=== PATIENT | female | born 2000 | race African-American/Black ===

== ENCOUNTER 2024-12-01 00:39 | Emergency (ER) | payer SELFPAY ==
--- NOTE | 2024-12-01 | ECG_ITS ---
Test Reason : SYNCOPE Blood Pressure : */* mmHG Vent. Rate : 76 BPM Atrial Rate : 76 BPM P-R Int : 184 ms QRS Dur : 84 ms QT Int : 410 ms P-R-T Axes : 35 -3 -7 degrees QTcB Int : 461 ms Normal sinus rhythm Normal ECG No previous ECGs available Referred By: Generic ED Physician Electronically Signed By: THOMAS ROJAS
[2024-12-01 00:43] VITALS: BP 111/63; PULSE 86; RESP 18; TEMP 37.1; O2SAT 97; BMI 35.4
[2024-12-01 01:24] LABS: MANUAL DIFF FLAG NO
[2024-12-01 01:26] LABS: Basophils Percent Auto 0.2 % (0-2); Eosinophils Absolute Auto 0.1 X10*3/uL (0.0-0.4); Eosinophils Percent Auto 2.6 % (0-4); Hematocrit 35.7 % (37.0-47.0); Hemoglobin 12.4 g/dl (12.0-16.0); Imm Gran Abs Auto 0.01 X10*3/uL (0.00-0.03); Imm Gran Pct Auto 0.2 % (0.0-0.4); Lymphocytes Absolute Auto 2.1 X10*3/uL (1.2-4.9); Lymphocytes Percent Auto 46.2 % (20-40); Mean Corpuscular HGB Conc 34.7 g/dl (31.0-35.0); Mean Corpuscular Hemoglobin 28.8 pg (27.0-33.0); Mean Platelet Volume 8.3 fL (9.4-12.3); Monocytes Absolute Auto 0.4 X10*3/uL (0.1-1.2); Monocytes Percent Auto 8.8 % (2-11); Neutrophils Absolute Auto 1.9 x10*3/uL (2.0-8.3); Platelet Count 248 X10*3/uL (160-400); Red Cell Distribution Width 12.5 % (11.0-16.0); White Blood Count 4.6 X10*3/uL (4.8-10.8)
--- OUTSIDE RECORDS SUMMARY | 2024-12-01 01:35 | XMS_ITS | Clinical Summary ---
Author Organization [address] [facility] Address [address] [place] [address] Phone Care Team Providers Care [employer]uer Name Role Phone Maral Hogan MD Primary Care Provider [phone] Allergies Active Allergy Reactions Criticality Noted Date Comments Other 10/30/2007 Seasonal allergies Active Problems Problem Noted Date Diagnosed Date Anemia 03/26/2024 Severe obesity (BMI 35.0-39. 9) with comorbidity (CMS/HCC V24, CMS/HCC V28) 03/26/2024 Immunizations Name Administration Dates Next Due DTaP (Infanrix) 6wks to less than 7yo ,03/20/2001,03/12/2000,12/26,1999 VVpM-SDE-TGI (Pentacel) 2mo to less than 5yo 02/03/2001,03/12/2000,1999,10/29 HPV 9-valent (Gardisil) 9yo to less than 46yo 07/05/2015 HPV, Quadrivalent 04/06/2014,04/03/2013 Hepatitis B Pediatric (Enger ix B; Recombivax HB) to less than 20 yo 06/11/2000,1999,1999 Hib (HbOC) 02/03/2001, 0,1999,10/29 IPV Inactivated polio (Ipol) 6wks and older 10/13/2003,02/03/2001,1999,10/29 Influenza Quadravalent, MDCK , 0.5ml, preservative free (Flucelvax) 6mo and older 05/06/2019 Influenza trivalent, 0.5mL, preservative free (Fluarix; FluLaval; Fluzone) ages 6mo and older (Afluria) 3 years and older 07/05/2015,04/06/2014,04/03/2013,04/03 Influenza trivalent, with pr eservative (Fluzone; Afluria) 6mo and older 02/06/2010 MMR, measles mumps and rubel la Live (Priorix; M-M-R II) 12mo and older 10/13/2003,02/03/2001 Meningococcal MCV4P 06/24/2019,04/03/2012 PPD Test 05/06/2019 Pneumococcal Conjugate Vacci ne, 7 Valent 09/02/2000,06/11/2000,03/12/2000 Tdap Tetanus diptheria acell ular pertussis (Boostrix; Adacel) 7yo and older 03/18/2024,02/08/2011 Varicella live (Varivax) 12m o and older 11/25/2009,09/02/2000 Surgical History Surgery Date Site/Laterality Comments HERNIA REPAIR 2m of age PROCEDURE: REPAIR UMBILICAL HERNIA TONSILLECTOMY ADENOIDECTOMY, BILATERAL MYRINGOTOMY AND TUBES 02/18/07 PROCEDURE: [place] TONSILLECTOMY & ADENOIDECTOMY <AGE 12 Medical History Medical History Date Comments Family circumstance 7-12 DX:Family ci rcumstance; COMMENT: DCF inquiry- active 51A Menarche age 11 yr DX:Menarche Historical Medical DX 04/03/2012 DX:NO ACTI VE MEDICAL PROBLEMS Anemia 09/13/2016 DX:Anemia; COMME NT: 09-13-16: iron started Family History Medical History Relation Name Comments No Known Problems Father Jay : warehouse manager No Known Problems Half-Brother 1 Nile santos half melani sam No Known Problems Half-Brother 2 Jay half jeanna saez Other: G-tube (?reason) Half-Sister Lymphoma Maternal Grandfather Other: prediabetic Mother Wilian Cabrales Lung cancer Other 1 mgaunt/smoker 6 0s Colon cancer Other 2 mgaunt/uncle 30 s/40s Other: heart failure Other 3 mgaunt 50s diabetic No Known Problems Paternal Grandfather Alcohol abuse Paternal Grandmother Coronary artery disease Paternal Grandmother Relation Name Status Comments Father Jay Alive Half-Brother 1 Nile santos Alive Half-Brother 2 Jay Alive Half-Sister Alive Maternal Grandfather Maternal Grandmother Alive Mother Wilian Cabrales Alive Other 1 Other 2 Other 3 Paternal Grandfather Paternal Grandmother (Age 50s) Social History Tobacco Use Types Packs/Day Years Used Date Smoking Tobacco: Never Smokeless Tobacco: Never Tobacco Cessation:Counseling Given: Not Answered Alcohol Use Standard Drinks/Week Comments No 0 (1 standard drink = 0.6 oz pur e alcohol) Comments Unknown Sex and Gender Information Value Date Recorded Sex Assigned at Not on file Legal Sex Female 2:15 AM EST Gender Identity Not on file Sexual Orientation Not on file Obstetrics History Last Filed Vital Signs Vital Sign Reading Time Taken Comments Blood Pressure 126/81 04/20/2024 3:59 PM EST Pulse 114 04/20/2024 3:59 PM EST Temperature 37.4 C (99.3 F) 04/20/2024 3:59 PM EST Respiratory Rate - - Oxygen Saturation - - Inhaled Oxygen Concentration - - Weight 95.9 kg (211 lb 8 oz) 04/20/2024 3:59 PM EST Height 160 cm (5' 3 ) 04/20/2024 3:59 PM EST Body Mass Index 37.47 04/20/2024 3:59 PM EST Plan of Treatment Health Maintenance Due Date Last Done Comments Depression Screening 05/13/2022 Hepatitis C Screening 05/13/2022 Social Influencers of Health Screening 05/13/2022 COVID-19 Vaccine ( season) 2024 Influenza Vaccine (Season Ended) 2025 05/06/2019, 07/05/2015, 04/06/2014, Additional history exists Cervical Cancer Screening: Pap Smear 11/16/2025 11/16/2022, 11/16/2022, 11/15/2022 Cholesterol Screening (Lipid Panel) 04/02/2029 04/02/2024, 09/13/2016 DTaP,Tdap,and Td Vaccines (8 - Td or Tdap) 03/18/2034 03/18/2024, 02/08/2011, 10/13/2003, Additional history exists Pneumococcal Vaccine: Pediatrics (0 to 5 Years) and At-Risk Patients (6 to 64 Years) Completed 09/02/2000, 06/11/2000, 03/12/2000 HIB Vaccines Completed 02/03/2001, 01/09, 03/12/2000, Additional history exists IPV Vaccines Completed 10/13/2003, 01/09, 02/03/2001, Additional history exists MMR Vaccines Completed 10/13/2003, 02/03/2001 Varicella Vaccines Completed 11/25/2009, 09/02/2000 HPV Vaccines Completed 07/05/2015, 03/11, 04/03/2013 Meningococcal ACWY Vaccine Aged Out 06/24/2019, No longer eligible based on patient's age to complete this topic Gonorrhea/Chlamydia Screening Discontinued 11/16/2022 HIV Screening Completed 04/02/2024, 04/04/2021 Hepatitis B Vaccines Completed 04/16/2024, 06/11/2000, 1999, Additional history exists Hepatitis A Vaccines Aged Out No long er eligible based on patient's age to complete this topic Meningococcal B Vaccine Aged Out No l onger eligible based on patient's age to complete this topic RSV Immunization Patients Under 20 months Aged Out No longer eligible based on patient's age to complete this topic Procedures Procedure Name Priority Date/Time Associated Diagnosis Comments HPV Routine 11/16/2022 GONORRHEA/CHLAMYDIA SCRREENING Routine 11/16/2022 HIV SCREENING Routine 04/04/2021 LIPID PANEL Routine 09/13/2016 from Last 3 Months or Most Recently Relevant to Health Maintenance Results * Cervical Cancer Screening: HPV (11/16/2022) Cervical Cancer Screening: HPV negative abstracted us Historical Provider MD HEALTH MAINTENANCE Final Result * Gonorrhea/Chlamydia Screening (11/16/2022) Gonorrhea/Chla mydia Screening abstracted us Historical Provider HEALTH MAINTENANCE Final Result * HIV Screening (04/04/2021) HIV Screening abstracted us Historical Provider HEALTH MAINTENANCE Final Result * Lipid panel (09/13/2016) LDL/HDL Ratio 2 0 - 4 Triglycerides 59 0 - 150 mg/dL Cholesterol 130 0 - 200 mg/dL HDL 64 >=40 mg/dL LDL Cholesterol 54 0 - 100 mg/dL Blood Venous blood specimen / Unknown Historical Provider LAB BLOOD ORDERABLES Shreya l Result from Last 3 Months or Most Recently Relevant to Health Maintenance Insurance [facility] Care Teams [employer] Relationship Specialty Start Date End Date Maral Hogan MD [address] [place] [id number] PCP - General Internal Medicine 08/07/21
[2024-12-01 01:47] LABS: Alanine Aminotransferase 16 U/L (0-31); Albumin Level 3.6 g/dL (3.5-5.0); Alkaline Phosphatase 81 U/L (39-117); Anion Gap 11 (12-20); Aspartate Amino Transferase 22 U/L (5-31); Bilirubin Total 0.3 mg/dL (0.0-1.0); Blood Urea Nitrogen 8 mg/dL (9-16); Calcium 8.5 mg/dL (8.4-10.2); Carbon Dioxide 22 mmol/L (22-29); Chloride 111 mmol/L (96-108); Creatinine Clr Calc Pharmacy 129.5; Estimated Glomerular Filt Rate > 60; Glucose Random 92 mg/dL (60-115); Potassium 3.5 mmol/L (3.3-5.1); Sodium 140 mmol/L (135-145); Total Protein 6.7 g/dL (6.5-8.0)
[2024-12-01 01:49] LABS: HCG Quantitative < 2 mIU/mL
--- NOTE | 2024-12-01 02:22 | ED_ITS ---
HPI - General Adult General Chief complaint: General Medical Stated complaint: feeling unnormal Time Seen by Provider: 12/01/24 02:16 Source: patient Mode of arrival: ambulatory Limitations: no limitations History of Present Illness ED Provider: Dr. Inessa Shipley HPI narrative: patient comes to the emergency room complaining of feeling a bit lightheaded. Patient states she has feel a bit shaky, states that she does not know how to explain how she is feeling. Denies any chest pain or shortness of breath, denies room spinning, denies syncope or near-syncope. patient denies any alcohol or drug use Related Data Allergies Allergy/AdvReac Type Severity Reaction Status Date / Time No Known Allergies (No Known Allergy Unverified 12/01/24 00:43 Allergies*) Review of Systems 2 Review of Systems: Constitutional : No Weight loss, No Fever, No Chills, No Night Sweats, No Fatigue, No Malaise ENT/Mouth : No Hearing loss, No Ear Pain, No Nasal Congestion, No Sinus Pain, No Hoarseness, No sore throat, No Rhinorrhea, No Swallowing Difficulty Eyes: No Eye Pain, No Swelling, No Redness, No Foreign Body, No Discharge, No Vision Changes Cardiovascular : No Chest Pain, No SOB, No Dyspnea on Exertion, No Orthopnea, No Edema, No Palpitations Respiratory : No Cough, No Sputum, No Wheezing, No Smoke Exposure, No Dyspnea Gastrointestinal : No Nausea, No Vomiting, No Diarrhea, No Constipation, No abdominal Pain, No Hematochezia, No Melena Genitourinary : no irregular bleeding, No Dysuria, No Urinary Frequency, No Hematuria, No Urinary Incontinence, No Urgency, No Flank Pain, No Urinary Flow Changes, No Hesitancy Musculoskeletal : No joint pain, No Myalgias, No Joint Swelling Skin : No Skin Lesions, No rash Neuro : No Weakness, No Numbness, No Paresthesias, No Loss of Consciousness, Complaining of feeling a bit dizzy, a bit tremulous, no headache Psych : No Anxiety/Panic, No Depression, No SI/HI/AH/VH, No Social Issues, Heme/Lymph: No Bruising, No Bleeding,No Lymphadenopathy Endocrine : No Polyuria, No Polydipsia, No Temperature Intolerance PMFSH Social History Social History Advance Directives: No Advance Directives Information Provided: Yes Physical Exam ED Vital Signs: Vital Signs - 24 hr 12/01/24 00:43 Temperature 98.7 F Pulse Rate 86 Respiratory Rate 18 Blood Pressure 111/63 Pulse Oximetry 97 Oxygen Delivery Method Room Air BMI result Body Mass Index 35.4 Const Other: Appearance: Alert. Oriented X3. No acute distress. well-appearing Eyes: Pupils equal, round and reactive to light. ENT: Pharynx normal. Neck: Normal inspection. Neck supple. No lymph nodes noted. No crepitus CVS: Normal heart rate and rhythm. Pulses normal. Normal S1 and S2 Respiratory: No respiratory distress. Breath sounds normal. No Wheezing. No rales Abdomen: Soft and nontender. No rigidity. No distention. Skin: Skin warm and dry. Normal skin color. Normal skin turgor. Extremities: No lower extremity edema. No Lacerations. No Rash Neuro: Oriented X 3. No motor deficit. No sensory deficit. Moving all extremities. No slurred speech. CN 2 through 12 grossly intact, no rest or intention tremor Psych: calm, cooperative, normal affect Course Course Course Narrative: all of patient's labs pending Medical Decision Making Medical Decision Making [facility] Narrative: my interpretation of labs: No significant abnormality patient's hematology and chemistry. HCG negative orthostatic vitals are negative. Is possible that patient may be a bit dehydrated. Today is a very warm day. Does not seem the patient was keeping up with the fluids well. Patient agreeable to drink p.o. fluids. This time, IV fluids are not indicated Differential Diagnosis Differential Diagnoses: The differential diagnosis associated with the presentation includes ( vertigo, BPPV, orthostatic hypotension, dehydration) Lab Data [facility] Lab Attestation statement: I reviewed the patient's lab results. 12/01/24 01:20 12/01/24 01:20 Labs: Lab Results 12/01/24 Range/Units 01:20 WBC 4.6 L (4.8-10.8) X10*3/uL RBC 4.30 (4.20-5.50) X10*6/uL Hgb 12.4 (12.0-16.0) g/dl Hct 35.7 L (37.0-47.0) % MCV 83.0 (80.0-98.0) fL MCH 28.8 (27.0-33.0) pg MCHC 34.7 (31.0-35.0) g/dl RDW 12.5 (11.0-16.0) % Plt Count 248 (160-400) X10*3/uL MPV 8.3 L (9.4-12.3) fL Immature Gran % (Auto) 0.2 (0.0-0.4) % Neut % (Auto) 42.0 L (45-73) % Lymph % (Auto) 46.2 H (20-40) % Sterling % (Auto) 8.8 (2-11) % Eos % (Auto) 2.6 (0-4) % Baso % (Auto) 0.2 (0-2) % Lymph # (Auto) 2.1 (1.2-4.9) X10*3/uL Sterling # (Auto) 0.4 (0.1-1.2) X10*3/uL Eos # (Auto) 0.1 (0.0-0.4) X10*3/uL Baso # (Auto) 0.0 (0.0-0.2) X10*3/uL Abs Immat Gran (auto) 0.01 (0.00-0.03) X10*3/uL Absolute Neuts (auto) 1.9 L (2.0-8.3) x10*3/uL Absolute Nucleated RBC 0.000 (0.0-0.012) X10*3/uL Nucleated RBC % (auto) 0.0 (0.0-0.2) /100WBC Sodium 140 (135-145) mmol/L Potassium 3.5 (3.3-5.1) mmol/L Chloride 111 H (96-108) mmol/L Carbon Dioxide 22 (22-29) mmol/L Anion Gap 11 L (12-20) BUN 8 L (9-16) mg/dL Creatinine 0.71 (0.5-1.4) mg/dL Estim Creat Clear Calc 129.5 Estimated GFR > 60 Random Glucose 92 (60-115) mg/dL Calcium 8.5 (8.4-10.2) mg/dL Total Bilirubin 0.3 (0.0-1.0) mg/dL AST 22 (5-31) U/L ALT 16 (0-31) U/L Alkaline Phosphatase 81 (39-117) U/L Total Protein 6.7 (6.5-8.0) g/dL Albumin 3.6 (3.5-5.0) g/dL Beta HCG, Quant < 2 mIU/mL Discharge Plan Discharge Clinical Impression: Light-headed Patient Disposition: Home, Self-Care Instructions: Dizziness (ED), Dehydration (ED) Stand Alone Forms: Work/School Release Print Language: Faroese
[2024-12-01 02:30] VITALS: BP 103/67; BP 103/71; BP 108/73; PULSE 59; PULSE 61; PULSE 65
[2024-12-01 02:56] VITALS: BP 107/76; PULSE 64; RESP 16; TEMP 36.9; O2SAT 99
== END 2024-12-01 02:57 | disposition home or self-care (01) ==
PROVIDERS: Emergency Provider Emergency Medicine
DX: R42 Dizziness and giddiness (principal)
CPT/HCPCS: 36415; 80053; 84702; 85025; 93005; 99283

== ENCOUNTER → 2024-12-01 01:00 | Outpatient (BNV) | payer SELFPAY | PROVIDERS: Emergency Provider Emergency Medicine; Visit Provider Internal Medicine | DX: R55 Syncope and collapse (principal) | CPT/HCPCS: 93010 ==